=== PATIENT | female | born 1950 | race Caucasian/White ===

== ENCOUNTER → 2019-05-10 | Outpatient (CLI) | payer MEDICARE, BC ==
[~2019-05-10] MED LIST: ASPIRIN 81M81 MG/TA2 PO; BENADRYL25 M2 PO; CALCIUM 600MG+D1 TAB PO; FOLIC ACID 40400 MCG PO; HYZAAR 50-12.1 UDTAB PO; MULTI VITAMINS1 TAB PO; NITROSTAT0.4 MG/TAB SL; SYNTHROID0.075 MG/T PO; TOPROL XL 50MG50 MG PO; TUMS500 MG PO; TYLENOL 8 HR PO; VITAMIN C500 MG PO; VITAMIN D31000 I1 PO; ZANTAC 150MG T150 MG PO; ZOCOR 20MG20 MG PO
== END ==
LOC: MC.RAD 08:01
DX: Z12.31 Encounter for screening mammogram for malignant neoplasm of breast (principal); N63.10 Unspecified lump in the right breast, unspecified quadrant

== ENCOUNTER → 2019-05-18 | Outpatient (CLI) | payer MEDICARE, BC | LOC: MC.RAD 13:30 | DX: D24.1 Benign neoplasm of right breast (principal) | CPT/HCPCS: G0279 ==

== ENCOUNTER → 2022-12-05 | Outpatient (CLI) | payer MEDICARE, BC | LOC: MC.RAD 10:33 | DX: Z12.31 Encounter for screening mammogram for malignant neoplasm of breast (principal); N64.89 Other specified disorders of breast ==

== ENCOUNTER → 2024-08-25 | Outpatient (CLI) | payer MEDICARE, BC | LOC: MC.RAD 10:59 | DX: N63.20 Unspecified lump in the left breast, unspecified quadrant (principal) ==